=== PATIENT | female | born 1995 | race Caucasian/White ===

== ENCOUNTER → 2019-04-03 | Outpatient (CLI) | payer OTHER ==
[~2019-04-03] MED LIST: BENADRYL25 MG PO; CLON.5 PO; Ferrous Sulfat325 M2; Flomax0.4 MG PO; Norco 10-325 T1 EACH PO; POTCHL10ER; Pepcid20 MG PO; Percocet 5-3251 EACH PO; Prednisone20 MG PO; TYLENOL; Vitamin C100 M1 PO; Zofran Odt4 MG SL
== END | disposition home or self-care (01) ==
LOC: LAB 13:44 → LAB SHORT 13:44
DX: J02.9 Acute pharyngitis, unspecified (principal)
CPT/HCPCS: 87081